=== PATIENT | female | born 1975 | race Caucasian/White ===

== ENCOUNTER 2017-12-20 09:18 | Emergency (ER) | payer MEDICAID | END 2017-12-20 11:03 | disposition home or self-care (01) | LOC: E/R 09:18 | DX: J20.9 Acute bronchitis, unspecified (principal) | CPT/HCPCS: 99284 ==

== ENCOUNTER 2017-12-26 08:56 | Emergency (ER) | payer MEDICAID ==
[2017-12-26] MEDS: predniSONE 20 MG TAB PO (10:23)
[2017-12-26] MEDS: GUAIFENESIN/DM 5ML CUP PO (10:30)
[2017-12-26] MEDS: ALBUTEROL 0.5% (NEB) 2.5 MG/0.5 ML AMP NEB (10:48)
[2017-12-26] MEDS: IPRATROPIUM (NEB) 0.5 MG/2.5 ML AMP NEB (10:48)
== END 2017-12-26 12:55 | disposition home or self-care (01) ==
LOC: E/R 08:56
DX: J20.9 Acute bronchitis, unspecified (principal); R40.2252 Coma scale, best verbal response, oriented, at arrival to emergency department; R40.2362 Coma scale, best motor response, obeys commands, at arrival to emergency department; R40.2142 Coma scale, eyes open, spontaneous, at arrival to emergency department
CPT/HCPCS: 94644; 99284-25

== ENCOUNTER 2018-07-21 14:09 | Emergency (ER) | payer BC, MEDICAID ==
[2018-07-21] MEDS: KETOROLAC 15 MG INJ IM (16:08)
== END 2018-07-21 16:26 | disposition home or self-care (01) ==
LOC: FTE 14:09
DX: M79.605 Pain in left leg (principal); M54.42 Lumbago with sciatica, left side
CPT/HCPCS: 81025; 96372; 99284-25